=== PATIENT | male | born 1995 ===

== ENCOUNTER 2022-10-15 17:23 | Emergency (ER) | payer MEDICAID ==
[2022-10-15] MEDS ORDERED: cefTRIAXone 2 GM Vial ONE (17:34)
[2022-10-15] MEDS ORDERED: Diphtheria,Pertussis(Acell),Tetanus Vaccine 0.5 ML Syringe ONE (17:40)
[2022-10-15] MEDS ORDERED: Sodium Chloride 0.9% 10 ML Syringe FLUSH PRN (17:41)
[2022-10-15 17:53] LABS: BASOPHILS PERCENT AUTO 0.2 % (0.0-1.0); EOSINOPHILS PERCENT AUTO 0.6 % (1.0-3.0); HEMATOCRIT 37.1 % (40.0-54.0); HEMOGLOBIN 12.8 g/dL (14.0-18.0); LYMPHOCYTES PERCENT AUTO 18.7 % (20.5-50.1); MEAN CORPUSCULAR HEMOGLOBIN 30.3 pg (27.0-34.0); MEAN CORPUSCULAR HGB CONC 34.5 g/dL (33.0-35.0); MEAN CORPUSCULAR VOLUME 87.9 fL (80-100); MONOCYTES PERCENT AUTO 5.9 % (2-8); NEUTROPHILS PERCENT AUTO 74.6 % (42.2-75.2); PLATELET COUNT,PLT 233 10^3/uL (150-450); RED BLOOD CELL COUNT 4.22 10^6/uL (4.6-6.2); WHITE BLOOD CELL COUNT,WBC 9.6 10^3/uL (5.0-10.0)
[2022-10-15 17:59] LABS: APPEARANCE,URINE CLEAR (CLEAR); BILIRUBIN,URINE NEGATIVE (NEGATIVE); COLOR,URINE YELLOW (YELLOW); GLUCOSE,URINE NEGATIVE (NEGATIVE); KETONES,URINE 15 (NEGATIVE); LEUKOCYTE ESTERASE,URINE NEGATIVE (NEGATIVE); NITRITE,URINE NEGATIVE (NEGATIVE); OCCULT BLOOD,URINE MODERATE (NEGATIVE); PROTEIN,URINE 100 (NEGATIVE)
[2022-10-15 18:01] LABS: AMPHETAMINES,URINE POSITIVE (NEGATIVE); BARBITURATES,URINE NEGATIVE (NEGATIVE); BENZODIAZEPINE,URINE NEGATIVE (NEGATIVE); MDMA (ECSTASY), URINE NEGATIVE (NEGATIVE); METHADONE,URINE NEGATIVE (NEGATIVE); METHAMPHETAMINES,URINE POSITIVE (NEGATIVE); OPIATES,URINE NEGATIVE (NEGATIVE); OXYCODONE,URINE NEGATIVE (NEGATIVE); PHENCYCLIDINE,URINE NEGATIVE (NEGATIVE); TCA,URINE NEGATIVE (NEGATIVE)
[2022-10-15 18:03] LABS: A/G RATIO 1.2; ALANINE AMINOTRANSFERASE,ALT 57 U/L (16-63); ALBUMIN 3.7 g/dL (3.4-5.0); ALKALINE PHOSPHATASE 56 U/L (46-116); ANION GAP 17.6 mEq/L (7-13); ASPARTATE AMNIOTRANSFERASE,AST 30 U/L (15-37); BILIRUBIN TOTAL 0.8 mg/dL (0.2-1.0); BLOOD UREA NITROGEN,BUN 13 mg/dL (7-18); BUN/CREATININE RATIO 9.8 (No establ ref range); CALCIUM 8.8 mg/dL (8.5-10.1); CARBON DIOXIDE,CO2 22 mmol/L (21-32); CHLORIDE,CL 108 mmol/L (98-107); CREATININE 1.33 mg/dL (0.70-1.30); ESTIMATED GFR 74 mL/min (>=60); ETHANOL BLOOD MEDICAL < 3 mg/dL (0); GLUCOSE RANDOM 201 mg/dL (70-99); POTASSIUM,K 3.6 mmol/L (3.5-5.1); PROTEIN TOTAL,TP 6.7 g/dL (6.4-8.2); SODIUM,NA 144 mmol/L (136-145)
[2022-10-15 18:10] LABS: WBC,URINE 0-5 /HPF (0-5/HPF)
[2022-10-15 18:11] LABS: AMORPHOUS SEDIMENT,URINE FEW /HPF (NOT SEEN); BACTERIA,URINE MODERATE /HPF (0-FEW/HPF); EPITHELIAL CELLS,URINE FEW /HPF (NOT SEEN); MUCUS,URINE FEW /LPF (NOT SEEN)
== END 2022-10-15 18:23 ==
LOC: DL.ED 17:23
DX: S11.91XA Laceration without foreign body of unspecified part of neck, initial encounter (principal); S41.112A Laceration without foreign body of left upper arm, initial encounter; S61.512A Laceration without foreign body of left wrist, initial encounter; S51.812A Laceration without foreign body of left forearm, initial encounter; Z23 Encounter for immunization; X78.1XXA Intentional self-harm by knife, initial encounter
CPT/HCPCS: 12007; 31500; 36415; 71045; 80053; 80305-QW; 80307; 81001; 85025; 90471; 99285-25

== ENCOUNTER 2024-01-02 19:06 | Emergency (ER) | payer MEDICAID, OTHER ==
[2024-01-02 19:52] LABS: BASOPHILS PERCENT AUTO 0.1 % (0.0-1.0); EOSINOPHILS PERCENT AUTO 0.2 % (1.0-3.0); HEMATOCRIT 43.4 % (40.0-54.0); HEMOGLOBIN 14.4 g/dL (14.0-18.0); LYMPHOCYTES PERCENT AUTO 11.3 % (20.5-50.1); MEAN CORPUSCULAR HEMOGLOBIN 29.5 pg (27.0-34.0); MEAN CORPUSCULAR HGB CONC 33.2 g/dL (33.0-35.0); MEAN CORPUSCULAR VOLUME 88.9 fL (80-100); MONOCYTES PERCENT AUTO 3.2 % (2-8); NEUTROPHILS PERCENT AUTO 85.2 % (42.2-75.2); PLATELET COUNT,PLT 222 10^3/uL (150-450); RED BLOOD CELL COUNT 4.88 10^6/uL (4.6-6.2); WHITE BLOOD CELL COUNT,WBC 9.3 10^3/uL (5.0-10.0)
[2024-01-02 20:03] LABS: AMPHETAMINES,URINE NEGATIVE (NEGATIVE); BARBITURATES,URINE NEGATIVE (NEGATIVE); BENZODIAZEPINE,URINE NEGATIVE (NEGATIVE); MDMA (ECSTASY), URINE NEGATIVE (NEGATIVE); METHADONE,URINE NEGATIVE (NEGATIVE); METHAMPHETAMINES,URINE NEGATIVE (NEGATIVE); OPIATES,URINE NEGATIVE (NEGATIVE); OXYCODONE,URINE NEGATIVE (NEGATIVE); PHENCYCLIDINE,URINE NEGATIVE (NEGATIVE); TCA,URINE NEGATIVE (NEGATIVE)
[2024-01-02 20:05] LABS: A/G RATIO 0.8; ALBUMIN 3.6 g/dL (3.4-5.0); BILIRUBIN TOTAL 0.3 mg/dL (0.2-1.0); BUN/CREATININE RATIO 8.3 (No establ ref range); CALCIUM 9.2 mg/dL (8.5-10.1); CREATININE 1.08 mg/dL (0.70-1.30); EST CRCL DRUG DOSING (CG) 93.51 mL/min; PROTEIN TOTAL,TP 7.9 g/dL (6.4-8.2)
[2024-01-02] MEDS: Diphtheria,Pertussis(Acell),Tetanus Vaccine 0.5 ML Syringe IM ONE (20:53)
== END 2024-01-02 22:00 ==
LOC: DL.ED 19:06
DX: S06.0XAA Concussion with loss of consciousness status unknown, initial encounter (principal); S01.01XA Laceration without foreign body of scalp, initial encounter; R45.851 Suicidal ideations; Z23 Encounter for immunization; X50.1XXA Overexertion from prolonged static or awkward postures, initial encounter
CPT/HCPCS: 12002; 36415; 70450; 71045; 80053; 80305-QW; 80307; 85025; 90471; 90715; 99285; 99285-25

== ENCOUNTER 2024-01-03 00:48 | Emergency (ER) | payer SELFPAY ==
[2024-01-03] MEDS: diazePAM 5 MG/ML MDV IV ONE (00:56)
== END 2024-01-03 03:05 ==
LOC: DL.ED 00:48
DX: R45.851 Suicidal ideations (principal); R46.89 Other symptoms and signs involving appearance and behavior; F43.20 Adjustment disorder, unspecified
CPT/HCPCS: 96372; 99284; 99285